=== PATIENT | male | born 1955 | race Caucasian/White ===

== ENCOUNTER → 2017-02-11 19:54 | Outpatient (CLI) | payer OTHER | END | disposition home or self-care (01) | LOC: D.LABREF 19:54 | DX: Z13.9 Encounter for screening, unspecified (principal) ==

== ENCOUNTER → 2017-03-06 19:10 | Outpatient (CLI) | payer OTHER | END | disposition home or self-care (01) | LOC: D.LABREF 19:10 | DX: M17.11 Unilateral primary osteoarthritis, right knee (principal); Z11.8 Encounter for screening for other infectious and parasitic diseases ==

== ENCOUNTER → 2018-05-16 09:33 | Outpatient (CLI) | payer OTHER ==
--- NOTE | ~2018-05-16 | OP ---
PATIENT NAME: LIZZIE CIFUENTES MEDICAL RECORD: [id number] :57 LOCATION:[facility] ADMISSION DATE: SURGEON: MATHEW ORR MD DATE OF OPERATION: 05/16/2018 PROCEDURE: Transthoracic echocardiogram. FINDINGS: 1. Left ventricle has mild dilatation. There is moderate concentric left ventricular hypertrophy and inflow characteristics are consistent with diastolic dysfunction. Ejection fraction 55% to 60%. 2. The left atrium is normal. 3. The aortic valve is normal. 4. The mitral valve has mild mitral regurgitation. 5. The tricuspid valve has mild tricuspid regurgitation, RVSP of 42 mmHg. 6. The right ventricle is mildly dilated. 7. The right atrium is mildly dilated. CONCLUSION: The patient has evidence of mild hypertensive heart disease and a trivial to mild elevation in pulmonary pressure. TRANSINT:[id number] Voice Confirmation ID: [id number] DOCUMENT ID: [id number] MATHEW ORR MD at 1348 CC: [id number] DICTATION DATE: 05/17/18 1027 COLOR MAKER FORMULATOR: 05/17/18 1047 DEP CLI 05/16/[address] [address]
== END | disposition home or self-care (01) ==
LOC: D.ECHO 09:33
DX: I10 Essential (primary) hypertension (principal); R07.9 Chest pain, unspecified

== ENCOUNTER → 2019-06-11 17:03 | Outpatient (CLI) | payer OTHER ==
[~2019-06-11 17:03] MED LIST: CELEXA20 MG PO; LISINOPRIL20 MG PO; WELLBUTRIN XL150 M1
[2019-07-15 07:41] VITALS: BMI 40.1
== END | disposition home or self-care (01) ==
LOC: D.LABREF 17:03
PROVIDERS: ATTEND Nurse Practitioner Family
DX: M17.11 Unilateral primary osteoarthritis, right knee (principal)

== ENCOUNTER 2019-07-13 09:48 | Inpatient (IN) | payer OTHER ==
[~2019-07-13] VITALS: Ht 180.3 cm; Wt 125.0 kg
[2019-07-14] MEDS ORDERED: LISINOPRIL20 MG PO (13:07)
[2019-07-14] MEDS ORDERED: WELLBUTRIN XL150 M1 (13:08)
[2019-07-14] MEDS ORDERED: CELEXA20 MG PO (13:08)
[2019-07-22 11:25] LABS: ANION GAP 8.6 mmol/L (8-16); CALCIUM 9.3 mg/dL (8.5-10.1); CREATININE - SERUM 1.1 mg/dL (0.6-1.3); POTASSIUM - SERUM 4.6 mmol/L (3.5-5.1)
[2019-07-22 11:34] LABS: INR 0.94 (0.85-1.17); PROTIME 12.1 SECONDS (11.6-15.0)
[2019-07-22 11:47] LABS: APPEARANCE CLEAR (CLEAR); BILIRUBIN NEGATIVE (NEGATIVE); COLOR YELLOW (YELLOW); GLUCOSE NEGATIVE (NEGATIVE); KETONE NEGATIVE (NEGATIVE); NITRITE NEGATIVE (NEGATIVE); PROTEIN NEGATIVE (NEGATIVE); SPECIFIC GRAVITY 1.015 (1.005-1.020); UROBILINOGEN NORMAL (NORMAL)
[2019-07-22 12:21] LABS: HEMATOCRIT 44.9 % (42.0-54.0); HEMOGLOBIN 15.4 g/dL (13.5-17.5); LYMPHOCYTES 20.2 % (15-50); MCH 30.6 pg (26.0-34.0); MCHC 34.3 g/dL (31.0-37.0); MCV 89.3 fL (80.0-100.0); MEAN PLATELET VOLUME 10.1 fL (7.4-10.4); NEUTROPHILS 64.6 % (40-80); PLATELET COUNT 220 10x3/uL (130-400); RBC 5.03 10x6/uL (4.20-6.10); RDW 13.2 % (11.5-14.5); WBC 6.2 10x3/uL (4.8-10.8)
[2019-07-28 06:08] VITALS: BP 148/89; BMI 38.4
--- NOTE | 2019-07-28 08:15 | NUR ---
PLASMA BLADE SET TO 6/8 GROUNDING PAD ON PT RIGHT FLANK LOT # [id number] EXP 02/27/2021 PT RIGHT LEG CLEANSED WITH HIBICLEANSE AND ALCOHOL FROM UPPER THIGH TO TOES CIRCUMFERENTIALLY, DRIED WITH STERILE TOWEL, THEN WIPED WITH ALCOHOL PRIOR TO PREPPING WITH CHLORAPREP X3 FROM THIGH TO TOES CIRCUMFERENTIALLY.
--- NOTE | 2019-07-28 09:17 | NUR ---
WOUND BED PACKED WITH TOBRAMYCIN AND VANCOMYCIN. IRRIGATED WITH BETADINE SOLUTION
[2019-07-28 10:59] VITALS: BP 113/75
--- NOTE | 2019-07-28 11:00 | NUR ---
PATIENT TO ROOM WITH IV INTACT. NO COMPLAINTS. DRESSING TO KNEE CDI. BSCDS AND TEDS ON. PATIENT STATES NO PAIN AT THIS TIME. VS STABLE. CALL LIGHT WITHIN REACH.
--- NOTE | 2019-07-28 12:09 | OP ---
PATIENT NAME: LIZZIE CIFUENTES MEDICAL RECORD: [id number] :57 LOCATION:[facility] ADMISSION DATE:07/28/19 SURGEON: ROBERTO VELARDE DO DATE OF OPERATION: 07/28/2019 PROCEDURE PERFORMED: Right total knee arthroplasty. PREOPERATIVE DIAGNOSIS: Right knee osteoarthritis. POSTOPERATIVE DIAGNOSIS: Right knee osteoarthritis. INDICATIONS: Mr. Cifuentes is a 64-year-old male who has dealt with knee pain for quite some time. He has tried all manner of nonoperative treatment including injections, home physical therapy and other manners to deal with pain to no avail. He is tired of dealing with the pain and wants something done surgically. I informed him of the risks of it including infection, bleeding, damage to nerves and vessels, failure of implants, fracture and need for further surgery. He was okay with those blood clots and even and signed the consent. SURGEON: Roberto Velarde DO DESCRIPTION OF PROCEDURE: The patient was taken to the operative suite, laid in the supine position after given a block by anesthesia in preoperative area, given a gram of TXA, 2 grams Ancef and 80 mg of gentamicin. He was sedated and he was intubated. The right lower extremity was then prepped and draped in sterile fashion. A timeout was performed and everyone was in agreement with the correct side, site, patient and procedure. We then marked an incision down and covered in Ioban. The 10-blade scalpel was then used as careful dissection down to the capsule. Capsule was then incised with a medial parapatellar approach and the patella was exposed, part of the fat pad was removed. The patella was milled down from the implant and sized to a 34. The knee was then flexed up and the femoral canal was then entered. Distal femur was cut at 10 with 5 degrees of valgus. The proximal tibia was then cut at 4 mm. The excess bone was removed as well as the menisci. Any bleeding was coagulated with Aquamantys. The 10 extension block then fit very well. The knee was then flexed up and the femur was measured to be 67.5. The 4-in-1 cutting block was then put on an tiago wing was used to ensure there was no notching. This was then cut. The excess bone was removed. A cut bone was removed. Trial was put into place and the tibia was floated in and cycled. The rotation was then marked. The tibia was then exposed and sized to be 83. This was drilled and punched and extra holes put in the tibia. Cement was then mixed and it was placed in the tibia and on the implant, it was packed into place. Excess cement was removed. The femur was then impacted on and a 10 poly was put in between and brought to extension. Patella was then put in place and squeezed and held. The holes were drilled and redrilled and the patella sat down with more flush and excess cement was removed and held in place while it dried. A povidone iodine 10% with 500 mL of normal saline mixture was then placed in the knee and set for 3 minutes. It was then irrigated out with over a liter of normal saline. We then sized the tibial tray to 14. We did a 14 deep dish with an E poly and locked into place. This cycled very well and had good stability in extension and flexion. The knee was then irrigated and then tobramycin and vancomycin powder placed in the knee as well as Mally. The capsule was closed with #2 Ethibond in a uhytfm-xb-wuwls fashion. This was done by my assistance, Praful Carmona, advanced nurse practitioner and Sancho Hernandez, certified surgical resident assistant cna. They both OPERATIVE REPORT [id number] LIZZIE CIFUENTES assisted with retraction and throughout the procedure and with closing this could not have been performed without them. Once that was closed, the skin was closed with 2-0 Vicryl in an inverted interrupted fashion. ZipLine placed on the knee and dressed with Adaptic, 4 x 4s, ABD, Webril and Deric wrap. He was then awakened and taken to recovery with FERNANDO hose stocking up to the knee in stable condition. Blood loss was approximately 200 mL. COMPLICATIONS: None. TRANSINT:[id number] Voice Confirmation ID: [id number] DOCUMENT ID: [id number] ROBERTO VELARDE DO at 1209 CC: [id number] DICTATION DATE: 07/28/19 09 MANAGER WEB: 07/28/19 1101 [facility] [address] [place] [address]
[2019-07-28 12:27] LABS: BASOPHILS 0.1 % (0-2); EOSINOPHILS 0.1 % (0-7); HEMATOCRIT 43.1 % (42.0-54.0); IMMATURE GRANULOCYTES 0.5 % (0-5); LYMPHOCYTES 5.1 % (15-50); MCH 29.9 pg (26.0-34.0); MCHC 32.5 g/dL (31.0-37.0); MCV 92.1 fL (80.0-100.0); MEAN PLATELET VOLUME 9.7 fL (7.4-10.4); MONOCYTES 1.4 % (2-11); NEUTROPHILS 92.8 % (40-80); PLATELET COUNT 221 10x3/uL (130-400); RBC 4.68 10x6/uL (4.20-6.10); RDW 13.7 % (11.5-14.5); WBC 12.6 10x3/uL (4.8-10.8)
--- NOTE | 2019-07-28 12:45 | NUR ---
PATIENT IN BED WITH NO COMPLAINTS. IV INTACT. DRESSING TO KNEE CDI. VS STABLE. TOLERATED REG PO WITH NO N/V. CALL LIGHT WITHIN REACH. WILL CONTINUE TO MONITOR.
[2019-07-28 12:52] LABS: ALBUMIN 3.3 g/dL (3.4-5.0); ANION GAP 14.6 mmol/L (8-16); BILIRUBIN - TOTAL 0.39 mg/dL (0.2-1.3); CALCIUM 8.5 mg/dL (8.5-10.1); CARBON DIOXIDE 24.9 mmol/L (21.0-32.0); CREATININE - SERUM 1.4 mg/dL (0.6-1.3); POTASSIUM - SERUM 4.5 mmol/L (3.5-5.1); PROTEIN - SERUM 6.6 g/dL (6.4-8.2)
--- NOTE | 2019-07-28 15:00 | NUR ---
PATIENT SITTING UP ON SIDE OF BED WITH ASSIST, NO OCMPLAINTS OR SIGNS OF DISTRESS. O2 OFF AND SATS WNL. DRESSING CDI. VS STABLE. CALL LIGHT WITHIN REACH.
--- NOTE | 2019-07-28 18:55 | NUR ---
PATIENT IN BED WITH IV INTACT. NO COMPLAINTS AT THIS TIME. BSCDS AND TEDS ON. O2 STILL OFF WITH SATS 95% ON RA. DRESSING CDI. PATIENT HAS NOT VOIDED YET BUT STATES HE IS FIXING TO TRY. CALL LIGHT WITHIN REACH.
[2019-07-28 19:39] VITALS: BP 113/75; Ht 180.3 cm; Wt 125.0 kg
[2019-07-28 20:00] VITALS: BP 124/58
[2019-07-29 04:00] VITALS: BP 117/69
[2019-07-29 04:45] LABS: BASOPHILS 0 % (0-2); EOSINOPHILS 0.1 % (0-7); HEMATOCRIT 37.6 % (42.0-54.0); HEMOGLOBIN 11.8 g/dL (13.5-17.5); IMMATURE GRANULOCYTES 0.2 % (0-5); LYMPHOCYTES 10.1 % (15-50); MCH 28.6 pg (26.0-34.0); MCHC 31.4 g/dL (31.0-37.0); MEAN PLATELET VOLUME 10.2 fL (7.4-10.4); MONOCYTES 10.4 % (2-11); NEUTROPHILS 79.2 % (40-80); PLATELET COUNT 220 10x3/uL (130-400); RBC 4.13 10x6/uL (4.20-6.10); RDW 13.8 % (11.5-14.5); WBC 10.4 10x3/uL (4.8-10.8)
[2019-07-29 05:03] LABS: ANION GAP 12.1 mmol/L (8-16); BILIRUBIN - TOTAL 0.57 mg/dL (0.2-1.3); CALCIUM 8.1 mg/dL (8.5-10.1); CARBON DIOXIDE 27.3 mmol/L (21.0-32.0); CREATININE - SERUM 1.4 mg/dL (0.6-1.3); POTASSIUM - SERUM 4.4 mmol/L (3.5-5.1); PROTEIN - SERUM 6.1 g/dL (6.4-8.2)
--- NOTE | 2019-07-29 08:00 | NUR ---
PATIENT IN BED WITH IV INTACT. NO COMPLAINTS OR SIGNS OF DISTRESS. CALL LIGHT WITHIN REACH.
--- NOTE | 2019-07-29 08:00 | NUR ---
PATIENT IN BED WITH IV INTACT. NO COMPLAINTS. TEDS AND SCDS ON. CALL LIGHT WITHIN REACH.
[2019-07-29 09:48] VITALS: BP 116/71
--- NOTE | 2019-07-29 11:00 | NUR ---
PATIENT UP WITH PT. NO PROBLEMS AT THIS TIME. CALL LIGHT WITHIN REACH.
--- NOTE | 2019-07-29 12:00 | NUR ---
PATIENT SITTING UP IN CHAIR WITH NO COMPLAINTS. DID WELL AMBULATING WITH PT THIS AM. IV INTACT. CALL LIGHT WITHIN REACH.
[2019-07-29 13:23] VITALS: BP 126/69
[2019-07-29] MEDS ORDERED: KEFLEX500 MG PO (14:47)
[2019-07-29] MEDS ORDERED: OXYCODONE HCL5 M1 PO (14:47)
[2019-07-29] MEDS ORDERED: BAYER CHEWABLE81 MG PO (14:47)
--- NOTE | 2019-07-29 15:14 | MORECARE ---
CASE MANAGEMENT DISCHARGE SUMMARY PATIENT: LIZZIE CIFUENTES UNIT: [id number] ADM DATE: 07/28/19 AGE: 64 : 57 SEX: M ROOM/BED: D.2210 AUTHOR: TIFFANIE SHIRLEY PHYSICIAN: REFERRING PHYSICIAN: BIBI VELARDE DO DATE OF SERVICE: 07/29/19 Discharge Plan Patient Name: LIZZIE CIFUENTES Facility: [facility]:[place] : 1955 Planned Disposition: Home with Home Health Anticipated Discharge Date: Discharge Date: Expected LOS: Initial Reviewer: [email or web address] Initial Review Date: 07/28/2019 Generated: 07/29/19 4:14 pm External Providers External Provider: [facility] Next Contact Date: Service Request Date: Service Type: Resolution: Reviewer: Comments: Patient Name: LIZZIE CIFUENTES Page [phone] at 1514 All edits/amendments must be made on the electronic document DICTATION DATE: 07/29/19 1514 WIND TURBINE ERECTOR: SHANNON 07/29/19 151 RPT#: [id number] DC DATE: STATUS: ADM IN [facility] [address] [place] [address] END OF REPORT
--- NOTE | 2019-07-29 15:23 | MORECARE ---
CASE MANAGEMENT DISCHARGE SUMMARY PATIENT: LIZZIE CIFUENTES UNIT: [id number] ADM DATE: 07/28/19 AGE: 64 : 57 SEX: M ROOM/BED: D.2210 AUTHOR: TIFFANIE SHIRLEY PHYSICIAN: REFERRING PHYSICIAN: BIBI VELARDE DO DATE OF SERVICE: 07/29/19 Discharge Plan Patient Name: LIZZIE CIFUENTES Facility: [facility]:[place] : 1955 Planned Disposition: Home with Home Health Anticipated Discharge Date: Discharge Date: Expected LOS: Initial Reviewer: [email or web address] Initial Review Date: 07/28/2019 Generated: 07/29/19 4:22 pm Comments DCP- Discharge Planning Updated by [email or web address]: Carolina Carpenter on 07/29/19 2:[address] Patient Name: LIZZIE CIFUENTES Admission Status: Elective Accout number: [id number] Admission Date: 07-28-2019 : 1955 Admission Diagnosis: Attending: BIBI VELARDE Current LOS: 1 Anticipated DC Date: Planned Disposition: Home with Home Health Primary Insurance: [employer] PPO Discharge Planning Comments: CM met with patient to complete initial dc planning assessment. CM educated patient on the CM role and verbal consent given by patient to complete assessment. Patient lives at home with his son who will be his trash truck driver home. At discharge patient plans to return home and feels this is a safe discharge. CM discussed availability of home health, rehab services, and medical equipment. He has all his DME that was set up by Dr Velarde's office. (walker, CPM, Ice and BSC) He needs home health because he does not have transportation. MARIANELA with [facility] for Physical Therapy. Patient denied known discharge needs at this time. CM will continue to follow and will assist as needed with dc plans/needs. Drywall Stripper Helper: Carolina Carpenter DCPIA - Discharge Planning Initial Assessment Updated by [email or web address]: Carolina Carpenter on 07/29/19 3:14 pm * Is the patient Alert and Oriented? Yes * How many steps to enter\exit or inside your home? * PCP FARO * Pharmacy [facility] * Preadmission Environment Home with Family * ADLs Independent * Equipment Bedside Commode Rolling Walker * Other Equipment CPM AND ICE MACHINE * List name and contact numbers for known caregivers / representatives who currently or will assist patient after discharge: AKI CIFUENTES (SON)[phone] * Verbal permission to speak to the caregivers and representatives has been obtained from the patient. N/A * Community resources currently utilized None * Additional services required to return to the preadmission environment? Yes * Can the patient safely return to the preadmission environment? Yes * Has this patient been hospitalized within the prior 30 days at any hospital? No Coverage Notice Reviewer: [email or web address] Dameon Carpenter Notice Issued Date-Time: 07/29/2019 15:00 Notice Type: Patient Choice Letter Notice Delivered To: Patient Relationship to Patient: Assembler Tractor Name: Delivery Method: HAND - Hand Delivered Audrey Days: Prior Verbal Notification: Recipient Understood Notice: Yes Recipient Signature: Yes Med Rec Note Co-signed by Attending: Coverage Notice Comment: Last DP export: 07/29/19 2:14 Patient Name: LIZZIE CIFUENTES Page [phone] at 1523 All edits/amendments must be made on the electronic document DICTATION DATE: 07/29/19 152 STORE TEAM LEADER: SHANNON 07/29/191521 RPT#: [id number] DC DATE: STATUS: ADM IN [facility] [address] [place] [address] END OF REPORT
--- NOTE | 2019-07-29 15:31 | MORECARE ---
CASE MANAGEMENT DISCHARGE SUMMARY PATIENT: LIZZIE CIFUENTES UNIT: [id number] ADM DATE: 07/28/19 AGE: 64 : 57 SEX: M ROOM/BED: D.2210 AUTHOR: TIFFANIE SHIRLEY PHYSICIAN: REFERRING PHYSICIAN: BIBI VELARDE DO DATE OF SERVICE: 07/29/19 Discharge Plan Patient Name: LIZZIE CIFUENTES Facility: [facility]:[place] : 1955 Planned Disposition: Home with Home Health Anticipated Discharge Date: Discharge Date: Expected LOS: Initial Reviewer: [email or web address] Initial Review Date: 07/28/2019 Generated: 07/29/19 4:31 pm Comments DCP- Discharge Planning Updated by [email or web address]: Carolina Carpenter on 07/29/19 2:[address] Patient Name: LIZZIE CIFUENTES Admission Status: Elective Accout number: [id number] Admission Date: 07-28-2019 : 1955 Admission Diagnosis: Attending: BIBI VELARDE Current LOS: 1 Anticipated DC Date: Planned Disposition: Home with Home Health Primary Insurance: [employer] PPO Discharge Planning Comments: CM met with patient to complete initial dc planning assessment. CM educated patient on the CM role and verbal consent given by patient to complete assessment. Patient lives at home with his son who will be his tour driver home. At discharge patient plans to return home and feels this is a safe discharge. CM discussed availability of home health, rehab services, and medical equipment. He has all his DME that was set up by Dr Velarde's office. (walker, CPM, Ice and BSC) He needs home health because he does not have transportation. MARIANELA with [facility] for Physical Therapy. Patient denied known discharge needs at this time. CM will continue to follow and will assist as needed with dc plans/needs. Welt Sole Layer: Carolina Carpenter DCPIA - Discharge Planning Initial Assessment Updated by [email or web address]: Carolina Carpenter on 07/29/19 3:14 pm * Is the patient Alert and Oriented? Yes * How many steps to enter\exit or inside your home? * PCP FARO * [facility] * Preadmission Environment Home with Family * ADLs Independent * Equipment Bedside Commode Rolling Walker * Other Equipment CPM AND ICE MACHINE * List name and contact numbers for known caregivers / representatives who currently or will assist patient after discharge: AKI CIFUENTES (SON)[phone] * Verbal permission to speak to the caregivers and representatives has been obtained from the patient. N/A * Community resources currently utilized None * Additional services required to return to the preadmission environment? Yes * Can the patient safely return to the preadmission environment? Yes * Has this patient been hospitalized within the prior 30 days at any hospital? No Coverage Notice Reviewer: [email or web address] Dameon Carpenter Notice Issued Date-Time: 07/29/2019 15:00 Notice Type: Patient Choice Letter Notice Delivered To: Patient Relationship to Patient: Corporate Accounting Manager Name: Delivery Method: HAND - Hand Delivered Audrey Days: Prior Verbal Notification: Recipient Understood Notice: Yes Recipient Signature: Yes Med Rec Note Co-signed by Attending: Coverage Notice Comment: Last DP export: 07/29/19 2:22 Patient Name: LIZZIE CIFUENTES Page [phone] at 1531 All edits/amendments must be made on the electronic document DICTATION DATE: 07/29/19 1531 CARTON MACHINE OPERATOR: SHANNON 07/29/19 1531 RPT#: [id number] DC DATE: STATUS: ADM IN [facility] [address] [place] [address] END OF REPORT
--- NOTE | 2019-07-29 15:40 | NUR ---
PATIENT IN BED RESTING AT THIS TIME. NO COMPLAINTS OR SIGNS OF DISTRESS. I VINTACT. CALL LIGHT WITHIN REACH.
--- NOTE | 2019-07-29 16:04 | NUR ---
PATIENT SITTING UP IN CHAIR WAITING FOR DC PAPERS. IV INTACT. DRESSING CHANGED EARLIER BY DR. VELARDE. CALL LIGHT WITHIN REACH.
--- NOTE | 2019-07-29 16:50 | NUR ---
PATIENT RECIEVED DC INSTRUCTIONS. VERBALIZED UNDERSTANDING. NO QUESTIONS AT THIS TIME. IV REMOVED WITH CATH TIP INTACT. PRESCRIPTIONS GIVEN TO PATIENT. WAITING FOR SON FOR TRASPORTATION. CALL LIGHT WITHIN REACH.
== END 2019-07-29 17:15 | disposition home health service (06) | DRG 470 ==
LOC: D.SDCHOLD 07-28 05:00 → D.MS 07-28 10:29
PROVIDERS: Emergency Medicine; ADMIT Orthopaedic Surgery; ATTEND Orthopaedic Surgery
PROC: 0SRC0J9 Replacement of Right Knee Joint with Synthetic Substitute, Cemented, Open Approach (ICD-10-PCS; principal; 2019-07-28 07:00)
DX: M17.11 Unilateral primary osteoarthritis, right knee (principal); D62 Acute posthemorrhagic anemia; I10 Essential (primary) hypertension; F41.8 Other specified anxiety disorders; E66.9 Obesity, unspecified; Z68.38 Body mass index [BMI] 38.0-38.9, adult; Z85.46 Personal history of malignant neoplasm of prostate

== ENCOUNTER 2019-07-15 06:31 | Day surgery (SDC) | payer OTHER ==
[~2019-07-15] VITALS: Ht 177.8 cm; Wt 126.6 kg
[2019-07-15 07:05] LABS: HEMATOCRIT 47.4 % (42.0-54.0); HEMOGLOBIN 15.9 g/dL (13.5-17.5); MCH 30.3 pg (26.0-34.0); MCHC 33.5 g/dL (31.0-37.0); MCV 90.3 fL (80.0-100.0); MEAN PLATELET VOLUME 10.1 fL (7.4-10.4); RBC 5.25 10x6/uL (4.20-6.10); RDW 13.6 % (11.5-14.5); WBC 6.5 10x3/uL (4.8-10.8)
[2019-07-15 07:41] VITALS: BP 130/77; Ht 177.8 cm; Wt 126.6 kg
--- NOTE | 2019-07-15 13:55 | NUR ---
1300 PATIENT HAVING DIFFICULTY BREATHING, HIGH PITCHED UPPER AIRWAY NOISE ON INSPIRATION. B HECTOR RODRÍGUEZ AT BEDSIDE. RACEMIC EPI UPD ORDERED
--- NOTE | 2019-07-15 13:56 | NUR ---
1345 UPON READYING PATIENT FOR OUTPATIENT TRANSFER, SBP DROPPED TO 83. LR FLUID BOLUS INITIATED, DR LOUIS NOTIFIED AND AGREES WITH FLUID BOLUS
--- NOTE | 2019-07-15 15:04 | NUR ---
[address] VIEIRA, ORDERED EKG [address] VIEIRA. PRADEEP SERVED PT.
--- NOTE | 2019-07-21 12:54 | OP ---
PATIENT NAME: LIZZIE CIFUENTES MEDICAL RECORD: [id number] :57 LOCATION:D.OPS ADMISSION DATE: SURGEON: ENID HALE MD DATE OF OPERATION: 07/15/2019 PREOPERATIVE DIAGNOSIS: Symptomatic ventral hernia. POSTOPERATIVE DIAGNOSES: 1. Symptomatic incarcerated ventral hernia. 2. Secondary incarcerated ventral hernia that was cephalad to the umbilicus and involved the falciform ligament. PROCEDURE: Laparoscopic incarcerated ventral hernia repairs with round Ventralight ST mesh utilizing the Echo positioning system. SURGEON: Enid Hale MD KINDERGARTNERS HELPER: None. BLOOD LOSS: Minimal. ANESTHESIA: General. COMPLICATIONS: None. The risks, possible complications and alternatives to the procedure were explained to the patient. He elects to proceed. The discussion specifically included, but was not limited to, bleeding requiring an emergency reoperation, infection, recurrent hernia, bowel obstruction. OPERATIVE COURSE: The patient was conveyed to the operating room electively on 07/15/2019. General anesthesia was induced by the anesthesia staff. The abdomen was sterilely prepped and draped. A small skin incision was accomplished in the left upper quadrant. A Veress needle was inserted through the skin incision into the peritoneal cavity. CO2 insufflation was begun. Once a sufficient pneumoperitoneum had been achieved, a 12-mm trocar was inserted through this incision. Under direct internal vision, two 5-mm trocars were inserted in the right side of the abdomen and another 5-mm trocar was inserted in the left side of the abdomen. Utilizing the laparoscopic Harmonic scalpel, I reduced the incarcerated contents in the ventral hernias. I then utilized the same Harmonic scalpel, took down the falciform ligament as well as some preperitoneal fat. A prevesicular flap was created with the Harmonic scalpel. Intravenous methylene blue was instilled and we saw no spillage of methylene blue and therefore, no indication of a bladder injury. Once I was satisfied that all of the surrounding preperitoneal fat had been removed and there was going to be plenty of room to place the mesh, I sized the mesh. It was rolled up, placed in the abdominal cavity. Between the 2 hernias, a small skin aman was accomplished. Through the skin aman, I advanced a laparoscopic suture retrieval device. I then retrieved the plastic inflation tail on the Echo positioning system. This was brought out through the anterior abdominal wall. It was shortened. It was attached to the inflation device. It was then inflated. The mesh was then pulled up against the anterior abdominal wall. Utilizing the OptiFix fixed device, I then performed a circumferential fixation of the mesh to the overlying fascia. I then completed the hernia OPERATIVE REPORT [id number] LIZZIE CIFUENTES repair with the SorbaFix Tacker in a circular fashion as well. Once I was satisfied with the repair, I removed the Echo positioning system. I examined it and the entire positioning system had been removed. I irrigated and aspirated. There was no bleeding. I then pulled the omentum down over the small bowel to prevent a small-bowel obstruction. The Guillermo-Tash suture closure device and 0 Vicryl suture were used to close the 12-mm trocar site. All the trocars were removed and the abdomen desufflated. The skin incisions were closed with interrupted intracuticular 3-0 Vicryls except where the laparoscopic suture passer had been advanced and this was closed with a single 4-0 Vicryl Rapide suture. Sterile dressings were applied. The patient was then extubated and conveyed to the post-anesthesia care unit where he was in stable condition. I will see him in the office in 2-3 weeks. He is to be dismissed home on a narcotic analgesic as well as Colace to prevent straining. TRANSINT:[id number] Voice Confirmation ID: [id number] DOCUMENT ID: [id number] ENID HALE MD at 1254 CC: [id number] DICTATION DATE: 07/21/19 0857 METAL WORKER: 07/21/[address] [facility] 07/15/[address] [address]
== END 2019-07-15 18:56 | disposition home or self-care (01) ==
LOC: D.OPS 06:31 → D.PAN 10:15 → D.OPS 10:15
PROVIDERS: Anesthesiology; ATTEND Surgery
DX: K43.6 Other and unspecified ventral hernia with obstruction, without gangrene (principal); K42.0 Umbilical hernia with obstruction, without gangrene

== ENCOUNTER → 2020-11-22 11:56 | Outpatient (CLI) | payer OTHER ==
[2019-07-28 19:39] VITALS: BMI 38.4
[~2020-11-22 11:56] MED LIST changes: +BAYER CHEWABLE81 MG PO; +KEFLEX500 MG PO; +OXYCODONE HCL5 M1 PO
== END | disposition home or self-care (01) ==
LOC: D.LAB 11:56
PROVIDERS: ATTEND Internal Medicine Gastroenterology
DX: K52.9 Noninfective gastroenteritis and colitis, unspecified (principal)